=== PATIENT | male | born 2000 | race Caucasian/White ===

== ENCOUNTER 2020-03-07 10:21 | Outpatient (CLI) | payer OTHER, SELFPAY ==
--- NOTE | ~2020-03-07 | XR_ITS ---
EXAMINATION: XR skull min 4V DATE: 03/07/2020 10:38 INDICATION: Trauma to the left upper head TECHNIQUE: Left and right lateral as well as AP and Ronald's views of the skull were obtained. COMPARISON: None. FINDINGS: No fractures identified. Specifically the calvarium, gutierrez of the orbits and paranasal sinuses appea r intact. Nasal septum is midline. No air-fluid levels appreciated within the paranasal sinuses. IMPRESSION: 1. Normal skull. Reviewed, dictated and finalized at location B. IMPRESSION: 1. Normal skull.
--- NOTE | ~2020-03-07 | CT_ITS ---
EXAMINATION: CT brain wo con DATE: 03/07/2020 10:50 INDICATION: Head injury TECHNIQUE: Computed tomography (CT) of the head was performed without intravenous contrast. Sagittal and coronal reconstructions were performed. The mA was adjusted according to patient size. Iterative reconstruction technique was employed. The dose-length product was 605.33 mGy-cm. COMPARISON: Skull radiographs dated 03/07/2020 FINDINGS: No fracture. No acute intracranial hemorrhage, acute infarction or abnormal extra axial fluid collect ion. Ventricles are normal and symmetric. No mass/mass effect. Mucosal thickening the bilateral maxil daphne sinuses. The orbits and mastoid air cells are normal. IMPRESSION: 1. Normal brain. No fracture or acute intracranial process. Reviewed, dictated and finalized at location B.
--- NOTE | ~2020-03-07 | XR_ITS ---
EXAMINATION:XR cervical spine 4-5V DATE: 03/07/2020 10:38 INDICATION: Head injury TECHNIQUE: AP, lateral, lateral swimmers and odontoid views of the cervical spine are provided. COMPARISON: None FINDINGS: Alignment is normal. Odontoid is intact. Normal atlantoaxial interval. Vertebral body heights are no rmal. Disc spaces are normal. Prevertebral soft tissues are normal. Visualized apices of the lungs a re clear. IMPRESSION: 1. Normal cervical spine radiographs. Reviewed, dictated and finalized at location B.
== END 2020-03-07 10:22 | disposition home or self-care (01) ==
PROVIDERS: PCP Internal Medicine; Visit Provider Internal Medicine
DX: S09.90XA Unspecified injury of head, initial encounter (principal); X58.XXXA Exposure to other specified factors, initial encounter
CPT/HCPCS: 70260; 70450; 72050

== ENCOUNTER 2020-11-14 09:17 | Outpatient (CLI) | payer OTHER, SELFPAY ==
--- NOTE | ~2020-11-14 | US_ITS ---
EXAMINATION: US soft tissue UE RT DATE: 11/14/2020 09:43 INDICATION: Palpable abnormality at the medial aspect of the distal right upper arm TECHNIQUE: Multiple grayscale and Doppler ultrasound images of the region of concern at the medial as pect of the distal right upper arm were obtained. COMPARISON: None FINDINGS: There are a couple mildly prominent hypoechoic lymph nodes with normal central fatty bhavani which measu re 1.4 x 7 x 7 mm and 8 x 8 x 7 mm. The cortices of each lymph node measure up to 2 mm and 2.5 mm in maximal thickness respectively. No other abnormal masses or fluid collections identified. Of note the patient does have a small skin wound at the medial side of the elbow and these are most likely react que. IMPRESSION: 1. A couple mildly prominent likely reactive medial epitrochlear lymph nodes. Recommend clinical foll ow-up with repeat imaging should there be significant changes on physical exam. Reviewed, dictated and finalized at location A. IMPRESSION: 1. A couple mildly prominent likely reactive medial epitrochlear lymph nodes. R ecommend clinical follow-up with repeat imaging should there be significant patricia nges on physical exam.
== END 2020-11-14 09:18 | disposition home or self-care (01) ==
PROVIDERS: PCP Internal Medicine; Visit Provider Internal Medicine
DX: R22.31 Localized swelling, mass and lump, right upper limb (principal)
CPT/HCPCS: 76882

== ENCOUNTER 2021-05-11 10:03 | Outpatient (CLI) | payer OTHER, SELFPAY ==
--- NOTE | ~2021-05-11 | CT_ITS ---
EXAMINATION: CT abdomen w con DATE: 05/11/2021 11:29 INDICATION: Abdomen pain TECHNIQUE: Computed tomography (CT) of the abdomen and pelvis was performed with 100 cc Omnipaque 350 intravenous contrast. The dose-length product was 518.75 mGy-cm. Automated exposure control and iter ative reconstruction technique were employed. COMPARISON: None. FINDINGS: Lung bases are unremarkable. Heart size normal. No significant pleural or pericardial effus ion. No significant vascular abnormality. No lymphadenopathy. No free air or free fluid. Focal fatty infiltration of the liver near the falciform ligament. The liver, spleen, pancreas, adrenal glands and left kidney are unremarkable. There is a small cyst o f the right kidney. Nonobstructive bowel gas pattern. No free air or free fluid. No acute osseous abn ormality. Small fat-containing umbilical hernia. IMPRESSION: 1. No acute abdominal abnormality. Reviewed, dictated and finalized at location A. RATIONS MANAGER
--- NOTE | ~2021-05-11 | XR_ITS ---
EXAMINATION: XR UGIAC wo kub DATE: 05/11/2021 11:41 INDICATION: Epigastric pain TECHNIQUE: Thick barium contrast with gas effervescent crystals were administered orally. Fluoroscop ic images of the esophagus, stomach, and proximal duodenum were obtained in various projections. The reafter, overhead images of the abdomen were performed. 1 minute minutes of fluroscopy. DAP 43. FINDINGS: No prior studies for comparison. The esophagus is normal in caliber, without mucosal lesions or strictures. There is normal esophagea l peristalsis. There is no hiatal hernia. No gastroesophageal reflux witnessed during the course of the study. The gastric folds are normal. The proximal duodenum is also normal in appearance. IMPRESSION: 1. Normal upper GI study. Reviewed, dictated and finalized at location A. ER AND PAINTER IMPRESSION: 1. Normal upper GI study.
== END 2021-05-11 10:04 | disposition home or self-care (01) ==
LOC: ANHIMG 10:11
PROVIDERS: PCP Internal Medicine; Visit Provider Internal Medicine
DX: R10.13 Epigastric pain (principal)
CPT/HCPCS: 74160; 74246; Q9967

== ENCOUNTER 2023-04-06 07:47 | Outpatient (CLI) | payer OTHER, SELFPAY ==
--- NOTE | ~2023-04-06 | XR_ITS ---
XR sinus min 3V DATE: 04/06/2023 08:04 INDICATION: Right-sided congestion. Nasal congestion. TECHNIQUE: Arreaga trivedi, lateral, submental vertical views COMPARISON: None FINDINGS: There is asymmetric soft tissue swelling of the right nasal turbinates. There is asymmetric increased density overlying the left maxillary sinus which may be due to left max illary soft tissue thickening or fluid. Noncontrast CT paranasal sinus examination would be more defi nitive for evaluation of the paranasal sinuses. The paranasal sinuses and mastoid air cells otherwise appear normally developed and aerated. IMPRESSION: Asymmetric soft tissue swelling of right nasal turbinates Cloudiness is suggested at the left maxillary sinus; left maxillary sinusitis is not excluded. Reviewed, dictated and finalized at location B. REWMAN IMPRESSION: Asymmetric soft tissue swelling of right nasal turbinates Cloudiness is suggested at the left maxillary sinus; left maxillary sinusitis i s not excluded.
== END 2023-04-06 07:48 | disposition home or self-care (01) ==
LOC: ANHIMG 07:49
PROVIDERS: PCP Internal Medicine; Visit Provider Internal Medicine
DX: R09.81 Nasal congestion (principal); J34.3 Hypertrophy of nasal turbinates
CPT/HCPCS: 70220

== ENCOUNTER 2023-07-11 11:46 | Outpatient (CLI) | payer OTHER, SELFPAY ==
[2023-07-11 14:02] LABS: Toxigenic C. Diff NEGATIVE (NEGATIVE)
== END 2023-07-11 11:47 | disposition home or self-care (01) ==
LOC: ANHLAB 11:48
PROVIDERS: PCP Internal Medicine; Visit Provider Internal Medicine
DX: R19.7 Diarrhea, unspecified (principal)
CPT/HCPCS: 87045; 87427; 87449; 87493; 89055